=== PATIENT | male | born 2005 | race Caucasian/White ===

== ENCOUNTER 2024-01-11 21:28 | Emergency (ER) | payer OTHER ==
[2024-01-11] MEDS: Albuterol/Ipratropium 3.0-0.5 MG/3 ML Neb Soln NEB STA (22:30)
[2024-01-11] MEDS: Albuterol/Ipratropium 3.0-0.5 MG/3 ML Neb Soln ONE (23:18)
[2024-01-11 23:36] LABS: INFLUENZA A NAA NEGATIVE (NEGATIVE); INFLUENZA B NAA NEGATIVE (NEGATIVE); RESPIRATORY SYNCYTIAL VIR NAA NEGATIVE (NEGATIVE)
[2024-01-11 23:37] LABS: CORONAVIRUS COVID-19 NAA NEGATIVE (NEGATIVE)
[2024-01-11] MEDS: ALPRAZolam 0.25 MG Tab PO ONE (23:52)
[2024-01-13] MEDS: ALPRAZolam 0.25 MG Tab ONE (09:51)
[2024-01-13] MEDS: ALPRAZolam 0.25 MG Tab PO ONE (09:51)
== END 2024-01-12 00:18 | disposition home or self-care (01) ==
LOC: LB.ED 21:28
DX: F41.1 Generalized anxiety disorder (principal)
CPT/HCPCS: 0241U; 71046; 94640; 99285; A9270; J7620